=== PATIENT | male | born 2000 | race Two or more races ===

== ENCOUNTER 2021-03-22 13:48 | Emergency (ER) | payer OTHER ==
[~2021-03-22] VITALS: Ht 177.8 cm; Wt 100.0 kg
[2021-03-22 15:26] LABS: BASOPHILS % (AUTO) 0.3 % (0.0-2.0); EOSINOPHILS % (AUTO) 0 % (1.0-6.0); HEMATOCRIT 44.8 % (41-53); HEMOGLOBIN 15.1 g/dL (13.5-17.5); LYMPHOCYTES % (AUTO) 17.4 % (22.0-44.0); MEAN CORPUSCULAR HEMOGLOBIN 30.8 pg (26.0-34.0); MEAN CORPUSCULAR HGB CONC 33.8 G/dL (31.0-37.0); MEAN CORPUSCULAR VOLUME 91 fL (80-100); MONOCYTES # (AUTO) 0.9 K/uL (0.1-1.0); MONOCYTES % (AUTO) 14.8 % (2.0-9.0); NEUTROPHILS # (AUTO) 3.9 K/uL (1.8-7.7); NEUTROPHILS % (AUTO) 67.5 % (40.0-70.0); PLATELET COUNT (AUTO) 208 K/uL (150-450); RED BLOOD CELL COUNT(AUTO) 4.92 MIL/uL (4.50-5.90); RED CELL DISTRIBUTION WIDTH 14.3 % (11.5-14.5)
[2021-03-22 15:40] LABS: ANION GAP 9 mmol/L (8-16); CALCIUM, TOTAL 9.1 mg/dL (8.8-10.5); CARBON DIOXIDE 31 mmol/L (22-29); CHLORIDE 100 mmol/L (98-107); CREATININE 1.14 mg/dL (0.60-1.30); GLOMERULAR FILTR. RATE CALC > 60 mL/min (>60); GLUCOSE,RANDOM 93 mg/dL (70-110); SODIUM SERUM 140 mmol/L (136-145); UREA NITROGEN, BLOOD 12 mg/dL (7-18)
[2021-03-22 15:46] LABS: ALANINE AMINOTRANSFERASE 64 U/L (12-78); ALBUMIN 4.1 g/dL (3.4-5.0); ALKALINE PHOSPHATASE 52 U/L (46-116); ASPARTATE AMINOTRANSFERASE 46 U/L (15-37); BILIRUBIN,TOTAL 0.4 mg/dL (0.1-1.0); TOTAL PROTEIN, SERUM 8.1 g/dL (6.4-8.2)
[2021-03-22 16:30] VITALS: BP 116/68
== END 2021-03-22 16:47 | disposition home or self-care (01) ==
LOC: EMS 13:48
DX: R10.9 Unspecified abdominal pain (principal); F12.90 Cannabis use, unspecified, uncomplicated
CPT/HCPCS: 71045; 80053; 84484; 85025; 85379; 93005; 99285; 36415-L1; 36415-TC

== ENCOUNTER 2021-12-12 19:59 | Emergency (ER) | payer OTHER ==
[~2021-12-12] VITALS: Ht 177.8 cm; Wt 100.0 kg
[2021-12-12 19:59] VITALS: BP 141/90
== END 2021-12-12 22:42 | disposition home or self-care (01) ==
LOC: EMS 20:00
DX: T15.11XA Foreign body in conjunctival sac, right eye, initial encounter (principal); F12.90 Cannabis use, unspecified, uncomplicated; Z85.9 Personal history of malignant neoplasm, unspecified
CPT/HCPCS: 65205; 99282; 99283; 99284